=== PATIENT | male | born 1980 | race Caucasian/White ===

== ENCOUNTER → 2017-07-10 | Day surgery (SDC) | payer OTHER ==
[2013-09-30 09:47] VITALS: BP 129/76
== END ==
LOC: MSO 07:51
DX: K22.2 Esophageal obstruction (principal)
CPT/HCPCS: 00740; A4649; J7120

== ENCOUNTER → 2018-09-14 | Outpatient (CLI) | payer BC ==
[2013-09-30 09:47] VITALS: BP 129/76
[2018-09-14 11:58] LABS: EOS # 0.2 (0.04-0.40); EOS % 2.5 % (0.0-4.0); HEMATOCRIT 45.1 % (42.0-52.0); HEMOGLOBIN 14.9 g/dL (13.5-18.0); LYMPH# 2.1 (1.50-4.00); MEAN CELL VOLUME 82 fl (78-100); MEAN CORPUSCULAR HEMOGLOBIN 27 pg (27-31); MEAN CORPUSCULAR HGB CONC 33 g/dL (33-37); MEAN PLATELET VOLUME 10.6 fl (7.4-10.4); MONO # 0.5 (0.20-0.80); NEU # 4.3 (1.40-6.50); PLATELET COUNT 295 K/mm3 (130-400); RED BLOOD COUNT 5.47 M/mm3 (4.20-5.60); WHITE BLOOD COUNT 7.1 K/mm3 (4.8-10.8)
[2018-09-14 12:12] LABS: CALCIUM 9.4 mg/dL (8.4-10.2); POTASSIUM 4.2 mmol/L (3.6-5.0); TOTAL BILIRUBIN 0.9 mg/dL (0.2-1.3)
== END ==
LOC: LAB 11:44
PROVIDERS: Family Medicine
DX: Z00.00 Encounter for general adult medical examination without abnormal findings (principal)

== ENCOUNTER → 2020-10-13 | Outpatient (REF) ==
[2013-09-30 09:47] VITALS: BP 129/76
== END ==
LOC: LAB 13:50
DX: Z00.00 Encounter for general adult medical examination without abnormal findings (principal); E78.5 Hyperlipidemia, unspecified

== ENCOUNTER → 2021-08-06 | Outpatient (CLI) | payer BC ==
[2021-08-06 08:53] LABS: BASO # 0.07 K/mm3 (0.02-0.10); EOS # 0.19 K/mm3 (0.04-0.40); EOS % 2.4 % (0.0-4.0); HEMATOCRIT 45.5 % (42.0-52.0); HEMOGLOBIN 15.2 g/dL (13.5-18.0); LYMPH# 2.16 K/mm3 (1.50-4.00); MEAN CELL VOLUME 84 fl (78-100); MEAN CORPUSCULAR HEMOGLOBIN 28 pg (27-31); MEAN CORPUSCULAR HGB CONC 33 g/dL (33-37); MEAN PLATELET VOLUME 11.3 fl (7.4-10.4); MONO # 0.44 K/mm3 (0.20-0.80); NEU # 5.05 K/mm3 (1.40-6.50); PLATELET COUNT 294 K/mm3 (130-400); RED BLOOD COUNT 5.44 M/mm3 (4.20-5.60); RED CELL DISTRIBUTION WIDTH 12.4 % (11.5-14.5); WHITE BLOOD COUNT 7.9 K/mm3 (4.8-10.8)
[2021-08-06 08:58] LABS: POTASSIUM 4.2 mmol/L (3.5-5.1)
[2021-08-06 08:59] LABS: ALBUMIN 4.4 g/dL (3.5-5.0)
[2021-08-06 09:00] LABS: CALCIUM 9.6 mg/dL (8.3-10.5)
[2021-08-06 09:01] LABS: TOTAL PROTEIN 7.5 g/dL (6.4-8.3)
[2021-08-06 09:03] LABS: TOTAL BILIRUBIN 0.8 mg/dL (0.2-1.2)
== END ==
LOC: LAB 07:50
PROVIDERS: Family Medicine
DX: Z00.00 Encounter for general adult medical examination without abnormal findings (principal)

== ENCOUNTER → 2024-10-14 | Day surgery (SDC) | payer BC ==
[~2024-10-14] MED LIST: Lidocaine PF 2% (20 MG/ML) 2 ML VIAL ONE
== END | disposition home or self-care (01) ==
LOC: MSO 07:51
DX: Z12.11 Encounter for screening for malignant neoplasm of colon (principal); Z80.0 Family history of malignant neoplasm of digestive organs; Z87.891 Personal history of nicotine dependence
CPT/HCPCS: 00812; J2704; J7120